=== PATIENT | female | born 1995 | race Caucasian/White ===

== ENCOUNTER 2018-01-20 13:20 | Emergency (ER) | payer MEDICAID, OTHER ==
[2018-01-20 14:49] LABS: URINE PH (Dip) POC 7.5 (5.0-8.5)
[2018-01-20 14:49] LABS: URINE BLOOD (Dip) POC Negative (NEGATIVE); URINE GLUCOSE (Dip) POC Negative (NEGATIVE); URINE KETONES (Dip) POC Negative (NEGATIVE); URINE LEUKOCYTE EST (Dip) POC 1+ (NEGATIVE); URINE NITRITE (Dip) POC Negative (NEGATIVE); URINE TOTAL PROTEIN POC 1+ (NEGATIVE)
[2018-01-20] MEDS: METOCLOPRAMIDE 10 MG INJ IV (14:57)
[2018-01-20] MEDS: DIPHENHYDRAMINE 50 MG INJ IV (14:57)
[2018-01-20] MEDS: KETOROLAC 30 MG INJ IV (14:57)
[2018-01-20] MEDS: SOD CHLORIDE 0.9% 1,000 ML IV (15:04)
== END 2018-01-20 16:12 | disposition home or self-care (01) ==
LOC: FTE 13:20
DX: R51 Headache (principal)
CPT/HCPCS: 81003; 81025; 96374; 96375; 99284-25